=== PATIENT | female | born 1950 | race Asian ===

== ENCOUNTER → 2016-12-14 | Outpatient (CLI) | payer MEDICARE, OTHER ==
[~2016-12-14] MED LIST: ATOR20TA86 PO; ERGO500050 PO; LORA1TAB3 PO; METF500T4 PO; MONT10TA21 PO; TIOT185 IH; VALS160T2 PO
[2016-12-14 12:57] LABS: BASOPHILS % (AUTO) 0.2 % (0.0-2.0); EOSINOPHILS % (AUTO) 0.4 % (1.0-6.0); HEMATOCRIT 33.6 % (36-46); HEMOGLOBIN 10.3 g/dL (12.0-16.0); LYMPHOCYTES # (AUTO) 0.9 K/uL (1.0-4.8); LYMPHOCYTES % (AUTO) 13.8 % (22.0-44.0); MEAN CORPUSCULAR HEMOGLOBIN 20.7 pg (26.0-34.0); MEAN CORPUSCULAR HGB CONC 30.7 G/dL (31.0-37.0); MEAN CORPUSCULAR VOLUME 68 fL (80-100); MONOCYTES # (AUTO) 0.8 K/uL (0.1-1.0); MONOCYTES % (AUTO) 11.6 % (2.0-9.0); NEUTROPHILS # (AUTO) 5.1 K/uL (1.8-7.7); PLATELET COUNT (AUTO) 331 K/uL (150-450); RED BLOOD CELL COUNT(AUTO) 4.98 MIL/uL (4.00-5.20); RED CELL DISTRIBUTION WIDTH 20.8 % (11.5-14.5); WHITE BLOOD COUNT (AUTO) 6.9 K/uL (4.5-11.0)
[2016-12-14 12:58] LABS: RBC MORPHOLOGY COMMENT ABNORMAL RBC MORPH
[2016-12-14 13:08] LABS: ALBUMIN 3.8 g/dL (3.4-5.0); BILIRUBIN,TOTAL 0.3 mg/dL (0.1-1.0); CALCIUM, TOTAL 8.9 mg/dL (8.8-10.5); CHOL/HDL RATIO 3.3 (3.9-5.7); CREATININE 0.95 mg/dL (0.60-1.30); POTASSIUM 4.2 mmol/L (3.5-5.1); THYROID STIMULATING HORMONE 0.63 uIU/mL (0.36-3.74); TOTAL PROTEIN, SERUM 8.3 g/dL (6.4-8.2)
[2016-12-14 13:17] LABS: HEMOGLOBIN A1C 7.1 % (4.5-6.2)
== END | disposition home or self-care (01) ==
LOC: LABPV 09:01
PROVIDERS: ATTEND Internal Medicine
DX: D64.9 Anemia, unspecified (principal); E61.1 Iron deficiency; E78.5 Hyperlipidemia, unspecified; Z79.899 Other long term (current) drug therapy
CPT/HCPCS: 83036; 83540; 84443; 85045

== ENCOUNTER → 2016-12-25 | Outpatient (CLI) | payer MEDICARE, OTHER | END | disposition home or self-care (01) | LOC: RADMN 12:33 | PROVIDERS: ATTEND Internal Medicine | DX: J44.9 Chronic obstructive pulmonary disease, unspecified (principal); J43.2 Centrilobular emphysema; J42 Unspecified chronic bronchitis; R91.1 Solitary pulmonary nodule; I70.0 Atherosclerosis of aorta; I25.10 Atherosclerotic heart disease of native coronary artery without angina pectoris; M53.84 Other specified dorsopathies, thoracic region; Z72.0 Tobacco use | CPT/HCPCS: 71250 ==

== ENCOUNTER 2016-12-26 10:50 | Emergency (ER) | payer MEDICARE, OTHER ==
[~2016-12-26] VITALS: Ht 157.5 cm; Wt 52.3 kg
[2016-12-26 12:28] LABS: BASOPHILS % (AUTO) 0.6 % (0.0-2.0); EOSINOPHILS % (AUTO) 1.9 % (1.0-6.0); HEMATOCRIT 30.7 % (36-46); HEMOGLOBIN 9.6 g/dL (12.0-16.0); LYMPHOCYTES # (AUTO) 1.5 K/uL (1.0-4.8); LYMPHOCYTES % (AUTO) 18.3 % (22.0-44.0); MEAN CORPUSCULAR HEMOGLOBIN 21.4 pg (26.0-34.0); MEAN CORPUSCULAR HGB CONC 31.2 G/dL (31.0-37.0); MEAN CORPUSCULAR VOLUME 69 fL (80-100); MONOCYTES % (AUTO) 12.5 % (2.0-9.0); NEUTROPHILS # (AUTO) 5.3 K/uL (1.8-7.7); NEUTROPHILS % (AUTO) 66.7 % (40.0-70.0); PLATELET COUNT (AUTO) 484 K/uL (150-450); RED BLOOD CELL COUNT(AUTO) 4.47 MIL/uL (4.00-5.20); RED CELL DISTRIBUTION WIDTH 23.7 % (11.5-14.5)
[2016-12-26 12:39] LABS: RBC MORPHOLOGY COMMENT ABNORMAL RBC MORPH
[2016-12-26 12:56] LABS: ANION GAP 11 mmol/L (8-16); CALCIUM, TOTAL 8.6 mg/dL (8.8-10.5); CARBON DIOXIDE 29 mmol/L (22-29); CHLORIDE 102 mmol/L (98-107); CREATININE 0.74 mg/dL (0.60-1.30); GLOMERULAR FILTR. RATE CALC > 60 mL/min (>60); POTASSIUM 3.4 mmol/L (3.5-5.1); SODIUM SERUM 142 mmol/L (136-145); UREA NITROGEN, BLOOD 11 mg/dL (7-18)
[2016-12-26 13:02] LABS: ALANINE AMINOTRANSFERASE 20 U/L (12-78); ALBUMIN 2.8 g/dL (3.4-5.0); ASPARTATE AMINOTRANSFERASE 11 U/L (15-37); BILIRUBIN,TOTAL 0.3 mg/dL (0.1-1.0); TOTAL PROTEIN, SERUM 6.8 g/dL (6.4-8.2)
[2016-12-26 13:53] VITALS: BP 138/64
== END 2016-12-26 13:55 | disposition home or self-care (01) ==
LOC: EMS 10:52
DX: R53.1 Weakness (principal); L03.115 Cellulitis of right lower limb; J44.9 Chronic obstructive pulmonary disease, unspecified; E11.9 Type 2 diabetes mellitus without complications; E78.00 Pure hypercholesterolemia, unspecified; I10 Essential (primary) hypertension; F17.210 Nicotine dependence, cigarettes, uncomplicated; Z88.0 Allergy status to penicillin
CPT/HCPCS: 82962; 93005; 99285

== ENCOUNTER 2017-06-07 18:24 | Emergency (ER) | payer MEDICARE, OTHER ==
[~2017-06-07] VITALS: Ht 157.5 cm; Wt 52.7 kg
[2017-06-07] MEDS ORDERED: ADV100 IH (18:33)
[2017-06-07] MEDS ORDERED: ALBU90AE IH (18:33)
[2017-06-07 19:48] LABS: BASOPHILS # (AUTO) 0.15 K/uL (0.00-0.20); BASOPHILS % (AUTO) 1.7 % (0.0-2.0); EOSINOPHILS # (AUTO) 1.59 K/uL (0.00-0.70); HEMATOCRIT 33.6 % (36-46); HEMOGLOBIN 10.8 g/dL (12.0-16.0); LYMPHOCYTES # (AUTO) 2.1 K/uL (1.0-4.8); MEAN CORPUSCULAR HEMOGLOBIN 22.7 pg (26.0-34.0); MEAN CORPUSCULAR HGB CONC 32.2 G/dL (31.0-37.0); MEAN CORPUSCULAR VOLUME 71 fL (80-100); MONOCYTES # (AUTO) 0.7 K/uL (0.1-1.0); MONOCYTES % (AUTO) 8.1 % (2.0-9.0); NEUTROPHILS # (AUTO) 4.2 K/uL (1.8-7.7); PLATELET COUNT (AUTO) 347 K/uL (150-450); RED BLOOD CELL COUNT(AUTO) 4.75 MIL/uL (4.00-5.20); RED CELL DISTRIBUTION WIDTH 20.6 % (11.5-14.5); WHITE BLOOD COUNT (AUTO) 8.7 K/uL (4.5-11.0)
[2017-06-07 19:59] LABS: PROTHROMBIN TIME 10.5 SEC (9.4-11.6)
[2017-06-07] MEDS ORDERED: DEXAMETHASONE SOD PHOS 4 MG/ML 5 ML VIAL IVP ONE (20:00)
[2017-06-07] MEDS ORDERED: LEVALBUTEROL HCL 1.25 MG/0.5 ML NEB SOLUTION NEB ONE (20:00)
[2017-06-07 20:01] LABS: ANION GAP 9 mmol/L (8-16); CALCIUM, TOTAL 9.5 mg/dL (8.8-10.5); CARBON DIOXIDE 29 mmol/L (22-29); CHLORIDE 102 mmol/L (98-107); CREATININE 0.79 mg/dL (0.60-1.30); GLOMERULAR FILTR. RATE CALC > 60 mL/min (>60); POTASSIUM 4.1 mmol/L (3.5-5.1); SODIUM SERUM 140 mmol/L (136-145); UREA NITROGEN, BLOOD 10 mg/dL (7-18)
[2017-06-07] MEDS ORDERED: LORA0.5T2 PO (20:02)
[2017-06-07 20:07] LABS: ALANINE AMINOTRANSFERASE 24 U/L (12-78); ALBUMIN 3.8 g/dL (3.4-5.0); ASPARTATE AMINOTRANSFERASE 16 U/L (15-37); BILIRUBIN,TOTAL 0.4 mg/dL (0.1-1.0); TOTAL PROTEIN, SERUM 7.7 g/dL (6.4-8.2)
[2017-06-07 20:35] LABS: B-TYPE NATRIURETIC PEPTIDE 10 pg/mL (0-100)
[2017-06-07] MEDS ORDERED: 0.9% SODIUM CHLORIDE 5 ML NEB SOLUTION NEB ONE (20:40)
[2017-06-07 21:41] LABS: EOSINOPHILS % (AUTO) 18.18 % (1.0-6.0)
[2017-06-07 21:42] LABS: RBC MORPHOLOGY COMMENT ABNORMAL RBC MORPH
[2017-06-07 22:45] VITALS: BP 131/62
== END 2017-06-07 22:56 | disposition home or self-care (01) ==
LOC: EMS 18:27
DX: J44.9 Chronic obstructive pulmonary disease, unspecified (principal); R91.8 Other nonspecific abnormal finding of lung field; I10 Essential (primary) hypertension; E78.00 Pure hypercholesterolemia, unspecified; E11.9 Type 2 diabetes mellitus without complications; F17.210 Nicotine dependence, cigarettes, uncomplicated; Z88.0 Allergy status to penicillin
CPT/HCPCS: 36415; 71010; 80053; 82962; 83880; 84484; 85025; 85610; 85730; 87040; 93005; 94640; 96374; 99285; J1100

== ENCOUNTER → 2017-07-13 | Outpatient (CLI) | payer MEDICARE, OTHER ==
[~2017-07-13] VITALS: Ht 154.9 cm; Wt 51.5 kg
[~2017-07-13] MED LIST changes: +ADV100 IH; +ALBU90AE IH; +ASPI-556 PO; +LORA0.5T2 PO; -LORA1TAB3 PO; -MONT10TA21 PO; -TIOT185 IH
[2017-07-13 13:49] VITALS: BP 136/77
== END | disposition home or self-care (01) ==
LOC: SRCNTR 12:52
PROVIDERS: ATTEND Internal Medicine Critical Care Medicine
DX: J44.9 Chronic obstructive pulmonary disease, unspecified (principal); E11.9 Type 2 diabetes mellitus without complications; I10 Essential (primary) hypertension; Z87.891 Personal history of nicotine dependence; Z79.84 Long term (current) use of oral hypoglycemic drugs; Z82.3 Family history of stroke
CPT/HCPCS: G0463

== ENCOUNTER → 2017-07-20 | Outpatient (CLI) | payer MEDICARE, OTHER ==
[~2017-07-20] MED LIST changes: -ADV100 IH
== END | disposition home or self-care (01) ==
LOC: LABPV 12:50
PROVIDERS: ATTEND Internal Medicine Critical Care Medicine
DX: J44.9 Chronic obstructive pulmonary disease, unspecified (principal)
CPT/HCPCS: 86171; 86480; 87015

== ENCOUNTER → 2017-07-20 | Outpatient (CLI) | payer MEDICARE, OTHER | END | disposition home or self-care (01) | LOC: LABPV 13:02 | PROVIDERS: ATTEND Internal Medicine | DX: D72.1 Eosinophilia (principal) | CPT/HCPCS: 86003 ==